=== PATIENT | female | born 1975 | race Hispanic/Latino ===

== ENCOUNTER 2023-12-17 11:30 | Emergency (ER) | payer SELFPAY ==
[~2023-12-17] VITALS: Ht 152.4 cm; Wt 90.7 kg
[2023-12-17] MEDS: acetaMINOPHEN 500 MG TABLET PO ONE (11:51)
[2023-12-17] MEDS: CYCLOBENZAPRINE HCL 10 MG TABLET PO ONE (11:51)
[2023-12-17 12:51] VITALS: TEMP 97.9
[2023-12-17] MEDS ORDERED: IBUP-2077 PO (15:22)
[2023-12-17] MEDS ORDERED: CYCL10TA16 PO (15:22)
[2023-12-17 15:23] VITALS: BP 139/71; PULSE 60; RESP 18; O2SAT 99
== END 2023-12-17 15:28 | disposition home or self-care (01) ==
LOC: EDH 11:30
DX: S30.0XXA Contusion of lower back and pelvis, initial encounter (principal); Z98.890 Other specified postprocedural states; W01.0XXA Fall on same level from slipping, tripping and stumbling without subsequent striking against object, initial encounter; Y93.89 Activity, other specified; Y92.89 Other specified places as the place of occurrence of the external cause; Y99.8 Other external cause status
CPT/HCPCS: 36415; 72100; 84703